=== PATIENT | male | born 2000 | race Caucasian/White ===

== ENCOUNTER 2018-01-21 17:14 | Inpatient (IN) | payer OTHER ==
--- NOTE | 2018-01-21 17:37 | EDPHY ---
H & P Stated Complaint: took too many of regular psych meds to try to sleep/denies SI Source: Patient Exam Limitations: No limitations - Personal History Current Tetanus Diphtheria and Acellular Pertussis (TDAP): Yes - Medical/Surgical History Hx Asthma: Yes Hx Chronic Respiratory Disease: No Hx Diabetes: No Hx Cardiac Disease: No Hx Renal Disease: No Hx Cirrhosis: No Hx Alcoholism: No Hx HIV/AIDS: No Hx Splenectomy or Spleen Trauma: No Other PMH: bipolar - Social History Smoking Status: Never smoked Time Seen by Provider: 01/21/18 17:36 HPI/ROS: CHIEF COMPLAINT: Intentional overdose HISTORY OF PRESENT ILLNESS: The patient is brought to the emergency department after an intentional overdose of gabapentin, Latuda and Depakote. The patient has a history of bipolar mood disorder. The patient has a history of 2 involuntary psychiatric hospitalizations in December while living in [place]. The patient has been staying with family in [place] since Thursday. He has been predominantly out of the house with friends. The patient return to his home today and reportedly took the medications secondary to insomnia. He denies suicidal or homicidal ideation. The patient is accompanied by his father who is concerned about the patient's safety and insight. REVIEW OF SYSTEMS: A comprehensive 10 point review of systems is otherwise negative aside from elements mentioned in the history of present illness. (Dat Doe) - Physical Exam Exam: General Appearance: Somnolent, arousable, no acute distress Eyes: Pupils equal and round no pallor or injection ENT, Mouth: Mucous membranes moist Respiratory: There are no retractions, lungs are clear to auscultation Cardiovascular: Regular rate and rhythm Gastrointestinal: Abdomen is soft and nontender, no masses, bowel sounds normal Neurological: Withdrawals to pain all 4 extremities Skin: Warm and dry, no rashes Musculoskeletal: Neck is supple nontender Extremities: symmetrical, full range of motion Psychiatric: Patient is oriented X 3, there is no agitation, denies suicidal or homicidal ideation (Dat Doe) Constitutional: Initial Vital Signs Temperature (C) 36.5 C 01/21/18 17:24 Heart Rate 72 01/21/18 17:24 Respiratory Rate 18 01/21/18 17:24 Blood Pressure 104/76 01/21/18 17:24 O2 Sat (%) 98 01/21/18 17:24 O2 Delivery Mode Room Air Allergies/Adverse Reactions: amphetamine [From Adderall] Allergy (Verified 01/22/18 08:42) "makes me depressed" dextroamphetamine [From Adderall] Allergy (Verified 01/22/18 08:42) "makes me depressed" Home Medications: Medication Instructions Recorded Divalproex ER [Depakote ER 500 MG 500 mg PO BID 01/21/18 (*)] Gabapentin [Neurontin 300 MG (*)] 300 mg PO TID 01/21/18 Lurasidone HCl [Latuda] 80 mg PO HS 01/21/18 Mirtazapine [Remeron] 15 mg PO HS 01/21/18 Albuterol [Proventil Inhaler HFA 1 - 2 puffs PO DAILY PRN 01/22/18 (*)] Ergocalciferol [Vitamin D2 (*)] 50,000 unit PO MO 01/22/18 Prazosin HCl [Minipress 1mg (*)] 1 - 2 mg PO HS PRN 01/22/18 hydrOXYzine HCL [Vistaril] 50 mg PO TID PRN 01/22/18 Medical Decision Making ED Course/Re-evaluation: The patient has been medically cleared for psychiatric evaluation. (Dat Doe) I assumed care of this patient at change of shift, approximately 9:00 p.m.. Awaiting evaluation. His care will be transferred to Dr. Gaffney at 11 PM. ( Petra Reyna) The patient was stable overnight. He is currently being interviewed by the mental health utility worker driver. They are trying to obtain some collateral information as he is somewhat guarded in his presentation. The case will be signed out to the oncoming provider Dr. Cowan. (Cely Gaffney) I took over care of this patient at 7:00 a.m.. This patient is currently being evaluated by the behavioral health staff. 8:05 a.m., the patient has been seen and evaluated by Behavioral Health they want to admit him to [address] [place] [address]. 8:30 a.m., the patient was placed on an M1 hold. I have filled out the appropriate transfer paperwork. He is awaiting transfer to [address] [place] [address]. 9:30 a.m., patient transferred to [address] [place] [address] in stable condition. (Lawrence Cowan) - Data Points Laboratory Results: Laboratory Results 01/21/18 17:52 01/21/18 17:52 Departure - Departure Disposition: [facility] IP Clinical Impression: Polysubstance abuse, Depression
[2018-01-21 18:18] LABS: PLATELET COUNT 175 10^3/uL (150-400)
[2018-01-22] MEDS ORDERED: ACETAMINOPHEN 325 MG TAB PO PRN (11:20)
[2018-01-22] MEDS ORDERED: NICOTINE POLACRILEX 2 MG GUM B PRN (11:20)
[2018-01-22] MEDS ORDERED: MAG HYDROX/AL HYDROX/SIMETH 30 ML UDCUP PO PRN (11:20)
[2018-01-22] MEDS ORDERED: MAGNESIUM HYDROXIDE 30 ML UDCUP PO PRN (11:20)
[2018-01-22] MEDS ORDERED: PNEUMOCOCCAL 0.5ML VACCINE VIAL IM ONE ×2 (11:21→14:11)
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
--- NOTE | 2018-01-22 13:37 | BCON ---
[f rep st] BEHAVIORAL HEALTH CONSULTATION INTERNAL MEDICINE CONSULTATION DATE OF CONSULTATION: 01/22/2018 REFERRING PHYSICIAN: Anibal Chowdary MD REASON FOR REFERRAL: Medical clearance for inpatient behavioral health stay. HISTORY OF PRESENT ILLNESS: This patient was brought to the emergency room yesterday by his father after an intentional overdose on gabapentin, Latuda, and Depakote. He had been living with his parents for less than a week after he had dropped out of college, likely due to psychiatric issues. He had overdosed on these medications prior to a visit with a substance abuse counselor. He was evaluated by the mental health team and admitted for further psychiatric care. He currently has no acute medical complaints. PAST MEDICAL HISTORY: 1. Bipolar disorder. 2. Asthma. 3. Polysubstance abuse. MEDICATIONS: Prior to admission: 1. Albuterol 1-2 puffs p.o. p.r.n. 2. Hydroxyzine 50 mg p.o. t.i.d. p.r.n. 3. Prazosin 1-2 mg p.o. q.h.s. p.r.n. 4. Ergocalciferol 50,000 units p.o. q. Thursday. 5. Depakote ER 500 mg p.o. b.i.d. 6. Mirtazapine 50 mg p.o. q.h.s. 7. Lurasidone 80 mg p.o. q.h.s. 8. Gabapentin 300 mg p.o. t.i.d. ALLERGIES: Listed to amphetamine and dextroamphetamine, both from Adderall. SOCIAL HISTORY: He has recently dropped out of college and is living with his parents. He is not employed. He is a smoker and cannabis user. FAMILY HISTORY: Patient was adopted. Likely, there is a family history of substance abuse. REVIEW OF SYSTEMS: He denies snoring. He feels tired, and he feels thirsty. He is not in pain. He has no cough or dyspnea. Otherwise, a 10-point review of systems is negative. PHYSICAL EXAM: VITAL SIGNS: Blood pressure is 123/81. Heart rate is 86. Respiratory rate is 15. Oxygen saturation is 97% on room air. Temperature is 36.8 degrees centigrade. His weight is 57.4 kg for a body mass index of 19.8. GENERAL: This is a well-nourished, well-developed, somewhat unkempt man, appears his chronologic age, cooperative and in no acute distress. HEENT: Extraocular movements are intact. Pupils are equal, round, reactive to light. Mucous membranes are moist. Dentition is in good condition. He has a crowded airway, Mallampati class 4. NECK: Supple. HEART: Regular rate and rhythm, with no murmurs, rubs, or gallops. LUNGS: Clear to auscultation bilaterally. ABDOMEN: Benign. EXTREMITIES: There is no cyanosis, clubbing, or edema. NEUROLOGIC: He is alert and oriented x3. Cranial nerves 2-12 are grossly intact. There is no focal weakness. Sensation is intact to light touch, and gait is within normal limits. LABORATORY STUDIES: From the emergency department, CBC was overall entirely within normal limits. He had a slight elevation of relative lymphocytes of no clinical significance. Serum chemistry revealed normal renal function and electrolytes. Glucose was slightly high, but it was likely nonfasting. Hemoglobin A1c was normal at 4.9. Toxicology screen in the serum was negative for ethyl alcohol, and the urine was non-negative for marijuana but otherwise negative for substances of abuse. ASSESSMENT/RECOMMENDATIONS: 1. Psychiatric issues, pending further evaluation and management per Psychiatry and the mental health team. 2. Intentional overdose. Other than feeling tired, he appears to have no long- term negative consequences. 3. Asthma. Appropriate to continue albuterol on a p.r.n. basis. 4. Tobacco dependence syndrome. He was encouraged to stop smoking. I see no medical contraindications to this patient's continued stay on the inpatient behavioral health unit or to any psychiatric medications or procedures. Thank you very much for including me in the care of this patient and please do not hesitate to contact me or the hospitalist service should there be need for further medical evaluation. /[id number]/MODL MTDD
[2018-01-22] MEDS: hydrOXYzine HCL 50 MG TAB PO PRN (14:12)
[2018-01-22] MEDS: GABAPENTIN 100 MG CAP PO SCH ×2 (15:45→21:22)
[2018-01-22] MEDS ORDERED: DIVALPROEX NA 250 MG TAB PO SCH (21:00)
[2018-01-22] MEDS ORDERED: DIVALPROEX NA 500 MG TAB PO SCH (21:00)
[2018-01-22] MEDS: LURASIDONE HCL 80 MG TAB PO SCH (21:19)
[2018-01-22] MEDS: PRAZOSIN HCL 1 MG CAP PO SCH (21:21)
[2018-01-23] MEDS: GABAPENTIN 100 MG CAP PO SCH ×3 (08:18→20:35)
--- NOTE | 2018-01-23 13:16 | SOAPPROG ---
SOAP Progress Note Assessment/Plan: Assessment: 17 yo man with h/o polysubstance dependence. His psychiatrist has dx him with Bipolar disorder, but patient admits he has been using mood altering substances including ETOH, THC and benzos as well as thought distorting and cognitively impairing substances such as 'shrooms and other hallucinogens during the entire time he has been under the care of mental health providers and taking psychotropic medications. Patient was admitted d/t taking OD of prescription meds. Plan: 01/23/18 13:10 1. Patient says he wants to pursue "longer-term" tx and is willing to go to [facility] for their 90 day inpatient dual dx tx program. 2. MD explained the potential risks/SE's from taking multiple psychotropics and the possible adverse effects from combining psychotropics with ETOH and other drugs of abuse. MD also emphasized the serious potential for respiratory failure , coma and when combining ETOH, benzos and sedatives/hypnotics as the patient was being prescribed. Patient verbalized his understanding of these risks and the potential adverse effects. 3. Patient denies any SI/HI, states he wants to get help and doesn't want to . 4. Anticipate d/c to residential tx program next week. Subjective: Met with patient, reviewed chart and d/w staff. Patient presents restless, cooperative and slightly irritable. Patient says he is restless b/c he'd rather be outside "on such a beautiful day." Patient admits he has a "problem with drugs" and would like to get treatment. He admits to using drugs and alcohol the entire time he's been under the care of mental health providers and while he 's been prescribed psychotropic meds. MD explained the potential risks and adverse effects associated with the list of meds he has been prescribed. MD explained that patient and his family need to weigh the risks and benefits of all prescription medications before deciding what to take. MD also explained that the many drugs which patient abuses including ETOH, THC, 'shrooms and other drugs, can cause mood instability, anxiety, panic, thought distortions, hallucinations, paranoia, psychosis, cognitive impairment, reckless/impulsive behaviors, decreased inhibition, poor judgment and impaired decision making. Many of these sxs are associated with bárbara, bipolar disorder, anxiety/panic disorder, and psychosis. It would be very difficult for any mental health professional to accurately diagnosis the patient while he was using drugs that produced sxs identical to the ones caused by mental illness, such as bipolar disorder and anxiety disorders. Patient said he understood this and was aware of the potential risks associated with his meds and combining prescriptions meds with drugs of abuse. Patient told MD, "I don't know what's going on with me ," but stated, "I want to get help." He said he felt that "going into and out of crisis treatment isn't the way to fix my fucking problems." Patient said he agreed with plan to enter drug rehab at [facility] for 90 days before going back to [place]. Patient denied any SI/HI, denied hallucinations and paranoia. Objective: Vital Signs Temp Pulse Resp BP Pulse Ox 36.4 C 95 12 117/64 95 01/23/18 00:30 01/23/18 00:30 01/23/18 00:30 01/23/18 00:30 01/23/18 00:30 MSE: Affect: Labile, irritable at times Mood: "OK" TP: Tangential, disorganized TC: Denies any SI/HI, no evidence of psychosis, denied AH/VH Insight/Judgment: Poor - Time Spent With Patient Time Spent With Patient: 20" - Pending Discharge Pending Discharge Within 24 Hours: No Pending Discharge Within 48 Hours: No ICD10 Worksheet Patient Problems: Problems Problem Status Onset Alcohol use disorder, severe, in controlled environment Acute Bipolar I disorder, severe, current or most recent episode manic, with psychotic features, with rapid cycling Acute Cannabis use disorder, severe, in controlled environment Acute Polysubstance abuse Acute
[2018-01-23] MEDS: DIVALPROEX ER 500 MG TAB PO SCH (20:34)
[2018-01-23] MEDS: PRAZOSIN HCL 1 MG CAP PO SCH (20:35)
[2018-01-23] MEDS: LURASIDONE HCL 80 MG TAB PO SCH (20:35)
[2018-01-23] MEDS: hydrOXYzine HCL 50 MG TAB PO PRN (21:54)
[2018-01-24] MEDS: GABAPENTIN 100 MG CAP PO SCH ×3 (08:16→19:16)
--- NOTE | 2018-01-24 13:22 | SOAPPROG ---
SOAP Progress Note Assessment/Plan: Assessment: 17 yo man with h/o polysubstance dependence. His psychiatrist has dx him with Bipolar disorder, but patient admits he has been using mood altering substances including ETOH, THC and benzos as well as thought distorting and cognitively impairing substances such as 'shrooms and other hallucinogens during the entire time he has been under the care of mental health providers and taking psychotropic medications. Patient was admitted d/t taking OD of prescription meds. Plan: 01/23/18 13:10 1. Patient says he wants to pursue "longer-term" tx and is willing to go to [facility] for their 90 day inpatient dual dx tx program. 2. MD explained the potential risks/SE's from taking multiple psychotropics and the possible adverse effects from combining psychotropics with ETOH and other drugs of abuse. MD also emphasized the serious potential for respiratory failure , coma and when combining ETOH, benzos and sedatives/hypnotics as the patient was being prescribed. Patient verbalized his understanding of these risks and the potential adverse effects. 3. Patient denies any SI/HI, states he wants to get help and doesn't want to . 4. Anticipate d/c to residential tx program next week. 01/24/18 13:18 1. Patient told CC that he's only going to [facility] residential tx "because of my parents." 2. traffic manager from [facility], called unit this AM and said they would probably be able to admit patient tomorrow. CC is faxing over med records to facilitate admission. 3. Will order VPA level for tomorrow AM anticipating Thursday transfer to [facility]. 4. Change legal status to voluntary. Subjective: Met with patient, reviewed chart and d/w staff. Patient has been cooperative, pleasant and appropriate on unit. He has attended all groups. He is eating and sleeping well, no signs of neurovegetative sxs. He denies feeling depressed, helpless or hopeless. He denies SI/HI. Even though he admits he is going to residential tx to please his parents, he agrees it is a "good idea." Objective: Vital Signs Temp Pulse Resp BP Pulse Ox 36.5 C 86 14 102/66 97 01/24/18 00:30 01/24/18 00:30 01/24/18 00:30 01/24/18 00:30 01/24/18 00:30 MSE: Affect: Euthymic Mood: "OK" TP: Linear TC: Denies any SI/HI, no AH/VH Insight/Judgment: Fair - Time Spent With Patient Time Spent With Patient: 15" - Pending Discharge Pending Discharge Within 24 Hours: Yes Pending Discharge Within 48 Hours: No Pending Discharge Date: 01/25/18 (Possible d/c tomorrow if bed available at [facility]) Pending Discharge Time: 11:00 ICD10 Worksheet Patient Problems: Problems Problem Status Onset Alcohol use disorder, severe, in controlled environment Acute Bipolar I disorder, severe, current or most recent episode manic, with psychotic features, with rapid cycling Acute Cannabis use disorder, severe, in controlled environment Acute Polysubstance abuse Acute
[2018-01-24] MEDS: DIVALPROEX ER 500 MG TAB PO SCH (19:16)
[2018-01-24] MEDS: PRAZOSIN HCL 1 MG CAP PO SCH (19:16)
[2018-01-24] MEDS: LURASIDONE HCL 80 MG TAB PO SCH (19:16)
[2018-01-25] MEDS: GABAPENTIN 100 MG CAP PO SCH ×3 (09:41→20:27)
[2018-01-25] MEDS: hydrOXYzine HCL 50 MG TAB PO PRN ×2 (13:06→18:48)
--- NOTE | 2018-01-25 15:03 | SOAPPROG ---
SOAP Progress Note Assessment/Plan: Assessment: Bipolar I Disorder. Patient is improving. Patient could benefit from continued inpatient hospitalization for crisis stabilization, safety, and medication evaluation. Plan: Review psychotropic medication treatment informed consent and recommendations. No medication changes at this time as more time is needed to determine ongoing tolerability and efficacy. Plan is to continue to observe patient for response and side effects from medications, and ongoing monitoring and evaluation. Next steps are for patient to meet with nurse wound care to plan a safe discharge plan and establish outpatient services for ongoing treatment. Consider discharge on Thursday if patient is in stable condition, safe, and has a safe discharge plan. PSYCHOTROPIC MEDICATION TREATMENT INFORMED CONSENT and RECOMMENDATIONS: Review nature of condition, diagnosis, and prognosis. Review nature and purpose of psychotropic medication treatment. Review type of psychotropic medications being ordered. Review risk and benefits of psychotropic medication treatment. Review probable length of time patient will need to take medications. Review risk and benefits of not undergoing psychotropic medication treatment. Review alternative treatments to psychotropic medications. Review psychotropic medications contraindications, drug-drug interactions, side effects, and importance of reporting any side effects to a psychiatric provider or nurse during inpatient hospitalization, and upon discharge to patients psychiatric outpatient provider, primary care provider, or other health ocular care technician. Review importance of asking a nurse, psychiatric provider, or primary care provider any questions or problems concerning the psychotropic medications. Verify patient understands the information that has been provided, and understands, accepts, and agrees to psychotropic medications. Review patients safety plan and importance of patient to report to staff while hospitalized if patient is ever a danger to self/others, or unable to care for self, and upon discharge, the importance for patient to contact [facility] or [facility], or go to the nearest emergency room, if patient is ever a danger to self/others, or unable to care for self. Recommend that upon discharge patient establish medication management treatment with a psychiatric provider, establishes routine therapy appointments, and follow-up with primary care provider. Verify patient understands and agrees to these recommendations. 01/25/18 15:08 01/25/18 15:09 Subjective: Following up with patient for evaluation of mood and safety. Patient reports he is sleeping well, appetite has been good, states he is tolerating medications with no report of side effects. Patient reports he is attending groups, reports mood as euthymic, states he has improved since his admission, and looks forward to discharging to [facility], and states he met with [facility] rep today. Patient reports he met with [facility] sales account representative today. Patient denies SI/HI, A/V hallucinations, or delusions. Patient reports he is anxious due to being here and around other people, but this is his baseline and he expresses no other psychiatric symptoms. Objective: Vital Signs Temp Pulse Resp BP Pulse Ox 36.4 C 70 14 111/63 97 01/25/18 06:34 01/25/18 06:34 01/25/18 06:34 01/25/18 06:34 01/25/18 06:34 Consulted with treatment team staff for update on patients progress in treatment. Nurses report Robbie is engaged in this treatment, and progressing well. Nurses report he slept 7.5 hours, is taking his medications as prescribed with no report of side effects, and with good response. Patient is active in groups, and denies SI/HI, A/V hallucinations, or delusions. Has expressed some anxiety, and reports no other psychiatric symptoms. Symptoms noted during interview: mild anxiety Patient is currently improving, tolerating current medications with no reports of side effects, and with good response. The patient presents casually dressed and with good hygiene, and looks stated age. Patient is sitting, posture is upright, and position is relaxed. Patient appears awake, alert, and responds appropriately and reasonably during interview. Patient is engaged, relates well to interviewer, and emotional facial expression is appropriate to situation and changes appropriately with topic. Patient is cooperative, makes comfortable eye contact, and movements are voluntary, deliberate, coordinated, and smooth and even with no inappropriate movements. Patient makes laryngeal sounds effortlessly and shares conversation appropriately; pace of conversation is appropriate, and stream of talking is fluent; articulation is clear and understandable; word choice is effortless and appropriate for education level; completes sentences, occasionally pausing to think; rate and volume are appropriate for interview and setting. Patient reports mood as anxious. Patients affect is stable with full variable range, congruent with mood, and appropriate to speech and circumstances. Patient has linear and logical thinking, with no loose associations, tangential thought, thought blocking, concrete thinking, or any other signs of formal thought disorder. Patient denies suicidal and homicidal ideation, and denies hallucinations and delusions. Patient appears to be a reliable historian with sound judgement and good insight into current condition. Patient has no apparent dysfunction in recent or remote memory noted , and no evidence of gross cognitive dysfunction noted at any point during the interview. - Time Spent With Patient Time Spent With Patient: 30 minutes, met with patient individually. - Pending Discharge Pending Discharge Within 24 Hours: Yes Pending Discharge Within 48 Hours: No Pending Discharge Date: 01/26/18 Pending Discharge Time: 11:00 ICD10 Worksheet Patient Problems: Problems Problem Status Onset Alcohol use disorder, severe, in controlled environment Acute Bipolar I disorder, severe, current or most recent episode manic, with psychotic features, with rapid cycling Acute Cannabis use disorder, severe, in controlled environment Acute Polysubstance abuse Acute
[2018-01-25] MEDS: DIVALPROEX ER 500 MG TAB PO SCH (20:27)
[2018-01-25] MEDS: PRAZOSIN HCL 1 MG CAP PO SCH (20:27)
[2018-01-25] MEDS: LURASIDONE HCL 80 MG TAB PO SCH (20:29)
[2018-01-26 06:41] VITALS: BP 118/67
[2018-01-26] MEDS: GABAPENTIN 100 MG CAP PO SCH (08:50)
--- NOTE | 2018-01-26 14:53 | BDS ---
[f rep st] BEHAVIORAL HEALTH DISCHARGE SUMMARY REASON FOR ADMISSION: The patient reported that he took too many of his medications, including his antipsychotic medication in order to get some sleep. States his parents over-reacted and sent him to the ER leading him to this hospitalization. The patient does suffer from polysubstance abuse and bipolar disorder, and patient was unstable and referred to the ER by his outpatient provider. For further information regarding reason for discharge, please refer to the admission psychiatric assessment completed on 01/22/2018, and also refer to the TLC evaluation. ADMISSION DIAGNOSES: 1. Bipolar 1 disorder, severe, with mood congruent psychotic features. 2. Cannabis use disorder, severe, in a controlled environment. 3. Alcohol use disorder, severe, in a controlled environment. 4. Polysubstance abuse. ADMISSION PHYSICAL EXAMINATION: The patient was seen by Dr. Metzger for internal medicine consultation on 01/22/2018. The reason for the referral was for medical clearance for inpatient Behavioral Health stay. Dr. Metzger reported that there were no medical contraindications to this patient being in inpatient behavioral health unit or to any psychiatric medications or procedures , and the patient was cleared for inpatient psychiatric treatment. ADMISSION LABORATORY DATA: From the emergency department, CBC was overall entirely within normal limits. The patient had a slight elevation of relative lymphocytes of no clinical significance. Serum chemistry revealed normal renal function and electrolytes. Glucose was slightly high, but it was likely nonfasting. Hemoglobin A1c was normal at 4.9. Toxicology screen in the serum was negative for ethyl alcohol and the urine was non-negative for marijuana, but otherwise negative for substances of abuse. The patient also had a fasting lipid panel completed; however, the labs look as though the lipid level was drawn when the patient was not fasting. HOSPITAL COURSE: The most prominent symptoms and behaviors while the patient was here were anxiety. Patient reported being anxious for being hospitalized on an inpatient unit. MENTAL STATUS EXAMINATION: At time of admission, the patient is an undernourished male looking older than chronological age. Attire is hospital garb and is disheveled. Grooming status is dirty, unwashed, and disheveled. Ambulation is independent. Gait is normal and coordinated. Posture is normal and slumped. Eye contact is little, avoiding, looking at the floor and sometimes staring at this interviewer with a blank stare. Motor activity is appropriate with purposeful organized, coordinated movements with no involuntary movements noted. Attitude is fairly cooperative. The patient at times is guarded. Patient appears disinterested, distractible, and relates fairly well to the interviewer. Language production is spontaneous. Rate is hesitant. Latency response is prolonged with sad tone, low volume, and amount is monosyllabic. Articulation is clear with no evidencing of impairments. Patient reports mood as okay or euthymic. Affect is constricted and flat, and is not congruent with the patient's reported mood. Patient's thought process is linear, and at times illogical, with no loose associations, no tangential thoughts, thought blocking noted several times throughout the interview. No concrete thinking and no other signs of formal thought disorder. The flow is fragmented and often derails with irrelevant answer to interview questions. No pressured speech noticed. Patient does not report suicidal or homicidal thoughts, ideas, or plans. Patient denies auditory or visual hallucinations. Patient denies delusions. Patient does not appear to be attending to internal stimuli. Orientation is full to person, full to place, full to time, and partial to situation. Attention and concentration are impaired. Insight is poor and judgment is poor. Cognitive: There is no evidence of gross cognitive function at any point during the interview and no evidence of apparent dysfunction in recent, remote memory noted. TARGET SYMPTOMS DURING HOSPITALIZATION: Patient was restarted on his home medications for bipolar disorder and treatment modalities utilized were milieu and group therapy. Latuda 80 mg p.o. at bedtime was started for mood and psychosis. Depakote 1000 mg p.o. at bedtime was started for mood, gabapentin 100 mg p.o. t.i.d. for anxiety, Vistaril 50 mg p.o. q.6 hours p.r.n. for anxiety, prazosin 1-2 mg p.o. at bedtime for nightmares related to PTSD. All the medications were tolerated with good response, and the patient reported no side effects during hospitalization from these medications. A Depakote level was completed on January 27 and level was 73 within therapeutic range. Patient has improved considerably with no signs of psychiatric symptoms and no psychiatric symptoms expressed. Patient reports has improved since admission. States to be in stable condition, feels safe for discharge, and contract for safety. The patient's response to treatment was good. There were no adverse or unexpected results of treatment. The patient was safe throughout stay, active in treatment , engaged in groups, and was appropriate with staff. The treatment team's consensus is the patient is stable condition and is safe to discharge today. CONDITION AT DISCHARGE: The patient is in stable condition, no longer danger to self or others, and is not gravely disabled due to mental illness. Patient is no longer in need of inpatient level of care and can safely and effectively be treated within the community. The patient's level of risk at time of discharge is low based on the risk assessment following discharge summary below. DISCHARGE MENTAL STATUS EXAMINATION: The patient is casually dressed and with good hygiene, and looks stated age. Patient is sitting, posture is upright, and position is relaxed. Patient appears awake, alert, and responds appropriately and reasonably during interview. Patient is engaged, relates well to interviewer, and emotional facial expression is appropriate to situation and changes appropriately with topic. Patient is cooperative, makes comfortable eye contact, and movements are voluntary, deliberate, coordinated, and smooth and even with no inappropriate movements. Patient makes laryngeal sounds effortlessly and shares conversation appropriately; pace of conversation is appropriate, and stream of talking is fluent; articulation is clear and understandable; word choice is effortless and appropriate for education level; completes sentences, occasionally pausing to think; rate and volume are appropriate for interview and setting. Patient reports mood as euthymic. Patients affect is stable with full variable range, congruent with mood, and appropriate to speech and circumstances. Patient has linear and logical thinking, with no loose associations, tangential thought, thought blocking, concrete thinking, or any other signs of formal thought disorder. Patient denies suicidal and homicidal ideation, and denies hallucinations and delusions. Patient appears to be a reliable historian with sound judgement and good insight into current condition. Patient has no apparent dysfunction in recent or remote memory noted, and no evidence of gross cognitive dysfunction noted at any point during the interview. DISCHARGE DIAGNOSES: 1. Bipolar 1 disorder, severe, most recent episode manic with mood congruent psychotic features. 2. Polysubstance abuse. 3. Alcohol use disorder, severe, in a controlled environment. 4. Cannabis use disorder, severe and controlled environment. DISCHARGE MEDICATIONS: The patient was discharged on his home medications. patient states that he does not need prescriptions of any of his medications at time of discharge. patient is to continue Remeron 15 mg p.o. at bedtime, gabapentin 300 mg p.o. t.i.d., hydroxyzine 50 mg p.o. t.i.d. p.r.n., prazosin 1- 2 mg p.o. at bedtime, vitamin D2 50,000 units p.o. monthly, albuterol inhaler 1- 2 puffs daily as needed. DISPOSITION: The patient discharged today and is going to [facility] in [place]. It is a long-term 90 day rehabilitation facility. Patient will be picked up by a community health representative from [facility] at time of discharge. Patient discharged today independently and voluntarily. FOLLOWUP CARE: Patient being discharged and going to [facility]. film sound coordinator reports the appropriate outpatient followup services have been established and outpatient appointments have been scheduled. The patient received written instructions with times and dates of outpatient followup appointments. The followup recommendations were provided to the patient at time of discharge: 1. Continue psychotropic medications as prescribed and attend outpatient appointments as scheduled. 2. Report any side effects to psychiatric outpatient provider, a primary care provider, or other healthcare professional. 3. Address any questions or problems concerning the psychotropic medications with the psychiatric outpatient provider, a primary care provider, or other healthcare professional. 4. Contact [facility] or [facility] or go to the nearest emergency room if you are ever a danger to yourself or others or unable to care for yourself. 5. As soon as possible establish routine medication management treatment with a psychiatric provider, establish routine therapy appointments, and follow up with the primary care provider. 6. Abstain from using substances of abuse, including cannabis, alcohol, hallucinogens and all other illicit substances. LEGAL COURSE: The patient was admitted on an M1 hold and was involuntarily hospitalized. The patient did become voluntary and was discharged voluntary today. ATTITUDE AT TIME OF DISCHARGE: The patient's attitude was positive at time of discharge and the patient reports looking for discharging today. The patient reports he feels safe at discharge, is no longer danger to himself or others, is in stable condition, and contracts for safety. The patient states he will continue medications as prescribed and established medication management treatment with an outpatient provider after discharge. Patient reports he plans to continue to see Dr. Avalos for outpatient psychiatric treatment. Patient reports he understands the information that has been provided to him and he understands accepts and agrees to psychotropic medications. Patient reports internal protective factors as the coping skills he has learned while hospitalized here and he plans to continue to practice these coping skills after discharge. Patient reports external protective factors as his love for music, family, and friends. The patient reports he has a lot of reasons to live. The patient describes looking forward to going to the [facility] after discharge and the patient describes future plans as finishing a music project with friends. Patient reports his adoptive mother and father look forward to him discharging today and going to [facility] for further treatment. Patient reports he has completed Safety, Wellness, and Relapse prevention plan. PENDING LABORATORY/STUDIES: There were no pending labs or studies at time of discharge. The following psychotropic medication treatment informed consent and recommendations were provided to the patient at time of discharge. Patient reports she/he understands, accepts, and agrees to the information that has been provided. PSYCHOTROPIC MEDICATION TREATMENT INFORMED CONSENT and RECOMMENDATIONS: Review nature of condition, diagnosis, and prognosis. Review nature and purpose of psychotropic medication treatment. Review type of psychotropic medications being prescribed. Review risk and benefits of psychotropic medication treatment. Review probable length of time will need to take medications. Review risk and benefits of not undergoing psychotropic medication treatment. Review alternative treatments to psychotropic medications. Review psychotropic medications contraindications, side effects, and importance of reporting any side effects to a psychiatric provider, primary care provider, or other health care nurse rn. Review importance of her asking a psychiatric provider or primary care provider any questions or problems concerning the psychotropic medications. Review safety plan and the importance to contact [facility] or [facility] , or go to the nearest emergency room, if ever a danger to yourself/others, or unable to care for yourself. Recommend upon discharge to establish routine medication management treatment with a psychiatric provider, establish routine therapy appointments, and follow-up with a primary care provider. Verify patient understands, accepts, and agrees to the information that has been provided. SUICIDE ASSESSMENT FIVE-STEP EVALUATION AND TRIAGE (1) RISK FACTORS: (a) Suicidal behavior: reports attempt 3 months by cutting wrist; self-injury did not require hospitalization or medical attention; patient reports cuts were superficial on forearms (b) Current/past psychiatric disorders: Bipolar I disorder (c) Bush symptoms: patient reports to be a little anxious at discharge (d) Family history: unsure due to being adopted at an early age; patient reports he thinks his biological father may have completed suicide (e) Precipitants/Stressors/Interpersonal: none (f) Change in treatment: discharge from psychiatric hospital (g) Access to firearms: none (2) PROTECTIVE FACTORS: (a) Internal: coping skills (b) External: future, family, and friends (3) SUICIDAL INQUIRY: (a) Ideation: none; last SI prior to admission (b) Plan: none (c) Behaviors: none (d) Intent: none (4) RISK LEVEL: Low: modifiable risk factors, strong protective factors; no SI or self-injurious ideation. Intervention: treatment plan to reduce symptoms: medications and therapy, provided emergency/crisis numbers, follow-up plan for outpatient services, and going to [facility] after discharge. /[id number]/MODL MTDD
== END 2018-01-26 12:00 | DRG 885 ==
LOC: BBEH 01-22 10:00
PROVIDERS: ADMIT Psychiatry & Neurology Psychiatry; ATTEND Psychiatry & Neurology Psychiatry
DX: F31.2 Bipolar disorder, current episode manic severe with psychotic features (principal); F10.10 Alcohol abuse, uncomplicated; F12.90 Cannabis use, unspecified, uncomplicated
CPT/HCPCS: 80305; G0009; G0480

== ENCOUNTER 2018-01-30 22:06 | Emergency (ER) | payer OTHER ==
[2018-01-30] MEDS ORDERED: OLANZapine DISINTEGR 10 MG TAB PO ONE (22:52)
[2018-01-30 22:54] LABS: PLATELET COUNT 169 10^3/uL (150-400)
--- NOTE | 2018-01-31 00:38 | EDPHY ---
H & P Smoking Status: Heavy smoker Time Seen by Provider: 01/30/18 22:16 HPI/ROS: CHIEF COMPLAINT: Suicidal ideation HISTORY OF PRESENT ILLNESS: 17-year-old male presents to the emergency department feeling depressed and suicidal. The patient has a history of substance abuse including Ritalin and alcohol. He has been feeling depressed and suicidal since being in the program over last 4 days. He has had 3 previous suicide attempts in the last 6 months including trying to hang himself and then most recently 3 weeks ago he tried to overdose. The patient has no current suicidal plan. He denies pain in his chest or difficulty breathing. Denies abdominal pain. Denies neck or back pain. REVIEW OF SYSTEMS: Constitutional: No fever, no chills. Eyes: No double or blurry vision. ENT: No sore throat. Respiratory: No cough, no shortness of breath. Cardiac: No chest pain. Gastrointestinal: No abdominal pain, vomiting or diarrhea. Genitourinary: No dysuria. Musculoskeletal: No neck or back pain. Skin: No rashes. Neurological: No headache. (Edith Frost) Past Medical/Surgical History: Substance abuse (Edith Frost) Social History: Single (Edith Frost) Physical Exam: General Appearance: Alert, no distress. Eyes: Pupils equal and round. Extraocular motions are all intact. ENT: Mouth: Mucous membranes moist. Respiratory: No wheezing, rhonchi, or rales, lungs are clear to auscultation. Cardiovascular: Regular rate and rhythm. Gastrointestinal: Abdomen is soft and nontender, no masses, no rebound or guarding, bowel sounds normal. Neurological: Alert and oriented x 3, cranial nerves II through XII grossly intact Skin: Warm and dry, no rashes. Musculoskeletal: Nontender to palpate along the cervical, thoracic or lumbar spine. Neck is supple. Extremities: Full range of motion and no peripheral edema. Psychiatric: Patient is oriented X 3, there is no agitation. (Edith Frost) Constitutional: Initial Vital Signs Temperature (C) 36.7 C 01/30/18 22:11 Heart Rate 65 01/30/18 22:11 Respiratory Rate 20 01/30/18 22:11 Blood Pressure 108/68 01/30/18 22:11 O2 Sat (%) 96 01/30/18 22:11 O2 Delivery Mode Room Air Allergies/Adverse Reactions: amphetamine [From Adderall] Allergy (Verified 01/30/18 22:10) "makes me depressed" dextroamphetamine [From Adderall] Allergy (Verified 01/30/18 22:10) "makes me depressed" Home Medications: Medication Instructions Recorded Gabapentin [Neurontin 300 MG (*)] 300 mg PO TID 01/21/18 Mirtazapine [Remeron] 15 mg PO HS 01/21/18 Albuterol [Proventil Inhaler HFA 1 - 2 puffs PO DAILY PRN 01/22/18 (*)] Ergocalciferol [Vitamin D2 (*)] 50,000 unit PO MO 01/22/18 Prazosin HCl [Minipress 1mg (*)] 1 - 2 mg PO HS PRN 01/22/18 hydrOXYzine HCL [Vistaril 50MG 50 mg PO TID PRN 01/22/18 (RX)] Divalproex ER [Depakote ER 500 MG 1,000 mg PO HS tab 01/26/18 (*)] Lurasidone HCl [Latuda] 80 mg PO HS tab 01/26/18 Medical Decision Making ED Course/Re-evaluation: 17-year-old male presents to the emergency department feeling depressed and suicidal. Patient has no plan. He was placed on an M1 hold by myself. When he is medically cleared, he will be evaluated by mental health. (Edith Frost) 0700AM: No acute events overnight patient has been sleeping. Patient signed over to Dr. Pressley at 7am. Pending Mental health eval. (Kelvin Rios) 7:00 a.m.-I assumed care of this patient at shift change. He is on an M1 hold for suicidal ideation. Mental health evaluation pending. 0830: Seen by mental health and felt appropriate for outpatient treatment of depression. He denies suicidal or homicidal ideation. I agree with this assessment. (Cheryl Pressley) Differential Diagnosis: Depression including functional and major depression, situational depression, medication side effect, drugs and alcohol abuse. (Edith Frost) Care Turn Over: Care will be turned over to Dr. Kelvin Rios at shift change for disposition and plan. (Edith Frost) - Data Points Laboratory Results: Laboratory Results 01/30/18 22:43 01/30/18 22:43 01/30/18 01/30/18 01/30/18 22:55 22:43 22:43 WBC 6.94 10^3/uL 10^3/uL (3.80-9.50) RBC 4.48 10^6/uL 10^6/uL (4.40-6.38) Hgb 14.2 g/dL g/dL (13.7-17.5) Hct 41.2 % % (40.0-51.0) MCV 92.0 fL fL (81.5-99.8) MCH 31.7 pg pg (27.9-34.1) MCHC 34.5 g/dL g/dL (32.4-36.7) RDW 13.3 % % (11.5-15.2) Plt Count 169 10^3/uL 10^3/uL (150-400) MPV 10.6 fL fL (8.7-11.7) Neut % (Auto) 43.2 % % (39.3-74.2) Lymph % (Auto) 44.1 % % (15.0-45.0) [place] % (Auto) 7.8 % % (4.5-13.0) Eos % (Auto) 3.3 % % (0.6-7.6) Baso % (Auto) 0.7 % % (0.3-1.7) Nucleat RBC Rel Count 0.0 % % (0.0-0.2) Absolute Neuts (auto) 3.00 10^3/uL 10^3/uL (1.70-6.50) Absolute Lymphs (auto) 3.06 10^3/uL H 10^3/uL (1.00-3.00) Absolute Monos (auto) 0.54 10^3/uL 10^3/uL (0.30-0.80) Absolute Eos (auto) 0.23 10^3/uL 10^3/uL (0.03-0.40) Absolute Basos (auto) 0.05 10^3/uL 10^3/uL (0.02-0.10) Absolute Nucleated RBC 0.00 10^3/uL 10^3/uL (0-0.01) Immature Gran % 0.9 % % (0.0-1.1) Immature Gran # 0.06 10^3/uL 10^3/uL (0.00-0.10) Sodium 145 mEq/L mEq/L (135-145) Potassium 4.4 mEq/L mEq/L (3.3-5.0) Chloride 110 mEq/L mEq/L (97-110) Carbon Dioxide 20 mEq/l L mEq/l (22-31) Anion Gap 15 mEq/L mEq/L (8-16) BUN 12 mg/dL mg/dL (7-23) Creatinine 0.8 mg/dL mg/dL (0.7-1.3) Estimated GFR > 60 Glucose 113 mg/dL H mg/dL (70-100) Calcium 9.6 mg/dL mg/dL (8.5-10.4) TSH 10.100 uIU/mL H uIU/mL (0.465-4.680) Urine Opiates Screen NEGATIVE (NEGATIVE) Urine Barbiturates NEGATIVE (NEGATIVE) Ur Phencyclidine Scrn NEGATIVE (NEGATIVE) Ur Amphetamine Screen NEGATIVE (NEGATIVE) U Benzodiazepines Scrn NEGATIVE (NEGATIVE) Urine Cocaine Screen NEGATIVE (NEGATIVE) U Marijuana (THC) Screen NON-NEGATIVE H (NEGATIVE) Ethyl Alcohol < 10 mg/dL mg/dL (0-10) Departure - Departure Disposition: Home, Routine, Self-Care Clinical Impression: Suicidal ideation Condition: Good Instructions: Suicide Prevention for Adults (ED) Additional Instructions: Follow-up with mental health as suggested. Referrals: NONE *PRIMARY CARE P,. [Primary Care Provider] - As per Instructions
[2018-01-31 09:14] VITALS: BP 112/81
--- NOTE | 2018-02-03 14:57 | EDPHY ---
[facility] Patient Name: DIANDRA BYRNES Rpt#: [id number] Unit Number: [id number] ER Physician: Edith CORREA Patient Type: DEP ER Adm Date/Source: 01/30/18 EMR Discharge Date: 01/31/18 Primary Carrier: [employer] PPO POS HMO SIG ADM EMERGENCY DEPARTMENT PROVIDER REPORT H P Smoking Status: Heavy smoker Time Seen by Provider: 01/30/18 22:16 HPI/ROS: CHIEF COMPLAINT: Suicidal ideation HISTORY OF PRESENT ILLNESS: 17-year-old male presents to the emergency department feeling depressed and suicidal. The patient has a history of substance abuse including Ritalin and alcohol. He has been feeling depressed and suicidal since being in the program over last 4 days. He has had 3 previous suicide attempts in the last 6 months including trying to hang himself and then most recently 3 weeks ago he tried to overdose. The patient has no current suicidal plan. He denies pain in his chest or difficulty breathing. Denies abdominal pain. Denies neck or back pain. REVIEW OF SYSTEMS: Constitutional: No fever, no chills. Eyes: No double or blurry vision. ENT: No sore throat. Respiratory: No cough, no shortness of breath. Cardiac: No chest pain. Gastrointestinal: No abdominal pain, vomiting or diarrhea. Genitourinary: No dysuria. Musculoskeletal: No neck or back pain. Skin: No rashes. Neurological: No headache. (Edith Frost) Past Medical/Surgical History: Substance abuse (Edith Frost) Social History: Single (Edith Frost) Physical Exam: General Appearance: Alert, no distress. Eyes: Pupils equal and round. Extraocular motions are all intact. ENT: Mouth: Mucous membranes moist. Respiratory: No wheezing, rhonchi, or rales, lungs are clear to auscultation. Cardiovascular: Regular rate and rhythm. Gastrointestinal: Abdomen is soft and nontender, no masses, no rebound or guarding, bowel sounds normal. Neurological: Alert and oriented x 3, cranial nerves II through XII grossly intact Skin: Warm and dry, no rashes. Musculoskeletal: Nontender to palpate along the cervical, thoracic or lumbar spine. Neck is supple. Extremities: Full range of motion and no peripheral edema. Psychiatric: Patient is oriented X 3, there is no agitation. (Edith Frost) Constitutional: Initial Vital Signs Temperature (C) 36.7 C 01/30/18 22:11 Heart Rate 65 01/30/18 22:11 Respiratory Rate 20 01/30/18 22:11 Blood Pressure 108/68 01/30/18 22:11 O2 Sat (%) 96 01/30/18 22:11 O2 Delivery Mode Room Air Allergies/Adverse Reactions: amphetamine [From Adderall] Allergy (Verified 01/30/18 22:10) "makes me depressed" dextroamphetamine [From Adderall] Allergy (Verified 01/30/18 22:10) "makes me depressed" Home Medications: Medication Instructions Recorded Gabapentin [Neurontin 300 MG (*)] 300 mg PO TID 01/21/18 Mirtazapine [Remeron] 15 mg PO HS 01/21/18 Albuterol [Proventil Inhaler HFA 1 - 2 puffs PO DAILY PRN 01/22/18 (*)] Ergocalciferol [Vitamin D2 (*)] 50,000 unit PO MO 01/22/18 Prazosin HCl [Minipress 1mg (*)] 1 - 2 mg PO HS PRN 01/22/18 hydrOXYzine HCL [Vistaril 50MG 50 mg PO TID PRN 01/22/18 (RX)] Divalproex ER [Depakote ER 500 MG 1,000 mg PO HS tab 01/26/18 (*)] Lurasidone HCl [Latuda] 80 mg PO HS tab 01/26/18 Medical Decision Making ED Course/Re-evaluation: 17-year-old male presents to the emergency department feeling depressed and suicidal. Patient has no plan. He was placed on an M1 hold by myself. When he is medically cleared, he will be evaluated by mental health. (Edith Frost) 0700AM: No acute events overnight patient has been sleeping. Patient signed over to Dr. Pressley at 7am. Pending Mental health eval. (Kelvin Rios) 7:00 a.m.-I assumed care of this patient at shift change. He is on an M1 hold for suicidal ideation. Mental health evaluation pending. 0830: Seen by mental health and felt appropriate for outpatient treatment of depression. He denies suicidal or homicidal ideation. I agree with this assessment. (Cheryl Pressley) Differential Diagnosis: Depression including functional and major depression, situational depression, medication side effect , drugs and alcohol abuse. (Edith Frost) Care Turn Over: Care will be turned over to Dr. Kelvin Rios at shift change for disposition and plan. (Edith Frost) - Data Points Laboratory Results: Laboratory Results 01/30/18 22:43 01/30/18 22:43 01/30/18 01/30/18 01/30/18 22:55 22:43 22:43 WBC 6.94 10 3/uL 10 3/uL (3.80-9.50) RBC 4.48 10 6/uL 10 6/uL (4.40-6.38) Hgb 14.2 g/dL g/dL (13.7-17.5) Hct 41.2 % % (40.0-51.0) MCV 92.0 fL fL (81.5-99.8) MCH 31.7 pg pg (27.9-34.1) MCHC 34.5 g/dL g/dL (32.4-36.7) RDW 13.3 % % (11.5-15.2) Plt Count 169 10 3/uL 10 3/uL (150-400) MPV 10.6 fL fL (8.7-11.7) Neut % (Auto) 43.2 % % (39.3-74.2) Lymph % (Auto) 44.1 % % (15.0-45.0) [place] % (Auto) 7.8 % % (4.5-13.0) Eos % (Auto) 3.3 % % (0.6-7.6) Baso % (Auto) 0.7 % % (0.3-1.7) Nucleat RBC Rel Count 0.0 % % (0.0-0.2) Absolute Neuts (auto) 3.00 10 3/uL 10 3/uL (1.70-6.50) Absolute Lymphs (auto) 3.06 10 3/uL H 10 3/uL (1.00-3.00) Absolute Monos (auto) 0.54 10 3/uL 10 3/uL (0.30-0.80) Absolute Eos (auto) 0.23 10 3/uL 10 3/uL (0.03-0.40) Absolute Basos (auto) 0.05 10 3/uL 10 3/uL (0.02-0.10) Absolute Nucleated RBC 0.00 10 3/uL 10 3/uL (0-0.01) Immature Gran % 0.9 % % (0.0-1.1) Immature Gran # 0.06 10 3/uL 10 3/uL (0.00-0.10) Sodium 145 mEq/L mEq/L (135-145) Potassium 4.4 mEq/L mEq/L (3.3-5.0) Chloride 110 mEq/L mEq/L (97-110) Carbon Dioxide 20 mEq/l L mEq/l (22-31) Anion Gap 15 mEq/L mEq/L (8-16) BUN 12 mg/dL mg/dL (7-23) Creatinine 0.8 mg/dL mg/dL (0.7-1.3) Estimated GFR > 60 Glucose 113 mg/dL H mg/dL (70-100) Calcium 9.6 mg/dL mg/dL (8.5-10.4) TSH 10.100 uIU/mL H uIU/mL (0.465-4.680) Urine Opiates Screen NEGATIVE (NEGATIVE) Urine Barbiturates NEGATIVE (NEGATIVE) Ur Phencyclidine Scrn NEGATIVE (NEGATIVE) Ur Amphetamine Screen NEGATIVE (NEGATIVE) U Benzodiazepines Scrn NEGATIVE (NEGATIVE) Urine Cocaine Screen NEGATIVE (NEGATIVE) U Marijuana (THC) Screen NON-NEGATIVE H (NEGATIVE) Ethyl Alcohol < 10 mg/dL mg/dL (0-10) Departure - Departure Disposition: Home, Routine, Self-Care Clinical Impression: Suicidal ideation Condition: Good Instructions: Suicide Prevention for Adults (ED) Additional Instructions: Follow-up with mental health as suggested. Referrals: NONE *PRIMARY CARE P,. [Primary Care Provider] - As per Instructions *This report may have been compiled using a voice recognition system, and might contain typographical errors and blanks.* Edith Rios MD 01/31/18 0038 <Electronically signed by Edith CORREA> 01/31/18 1612 <Electronically signed by Cheryl Pressley MD> 02/02/18 0812 <Electronically signed by Kelvin Rios MD> T: DANN 01/31/1835 CC: NONE *PRIMARY CARE PHYS ONLY*
== END 2018-01-31 09:33 | disposition home or self-care (01) ==
DX: R45.851 Suicidal ideations (principal); F17.200 Nicotine dependence, unspecified, uncomplicated
CPT/HCPCS: 80305; G0480